=== PATIENT | female | born 1970 | race Caucasian/White ===

== ENCOUNTER 2021-01-14 08:24 | Emergency (ER) | payer OTHER, SELFPAY ==
[2021-01-14 08:48] VITALS: BP 155/95; PULSE 86; RESP 16; TEMP 36.5; O2SAT 99
--- NOTE | 2021-01-14 08:49 | ED.SKABFB ---
HPI - Skin/Abscess/Foreign Bdy General Chief complaint: Upper Respiratory Infection Stated complaint: thrush/sore throat Time Seen by Provider: 01/14/21 08:49 Source: patient Mode of arrival: ambulatory Limitations: no limitations History of Present Illness HPI narrative: Sabrina Tripathi is a 50 yo female with PMH of HTN who comes to [facility] with large splotchy hives on arms and back and complaints of mouth pain and throat pain. Her tongue has a light coating on it but her throat appears to be really red she said it hurts to swallow. Hives have been present for a month; but with is been sore for 3 days. No fever no nausea no vomiting Related Data Allergies Allergy/AdvReac Type Severity Reaction Status Date / Time tetracycline Allergy Mild SWELLING Verified 01/14/21 09:17 NAUSEA AND VOMITING Review of Systems Review of Systems: CONSTITUTIONAL: Denies fever, chills, sweats. EYES: Denies visual changes, redness, discharge. ENT: Denies rhinorrhea, congestion, has sore throat, and tongue, otalgia. CARDIOVASCULAR: Denies chest pain, palpitations, edema. RESPIRATORY: Denies dyspnea, wheezing, cough GASTROINTESTINAL: Denies abdominal pain, nausea, vomiting, diarrhea. GENITOURINARY: Denies dysuria, hematuria, abnormal discharge SKIN: Denies rash or itching. Has hives on her arms back and back of the neck NEUROLOGIC: Denies numbness, or focal weakness. PSYCHIATRIC: Denies anxiety or depression. [facility] Past Medical History Medical History Hypertension Family History Family History Other Diabetes mellitus Heart disease High cholesterol Hypertension Social History Social History (Updated 01/14/21 @ 08:57 by Dory Conteh CNP) Smoking status: Never smoker Alcohol intake: never Comments At time of signature, I agree with nursing past medical, surgical, social and family history. There is no relevant family history pertinent to the presenting complaint. Exam Narrative: GENERAL: This is a well-nourished, well-developed patient, in mild distress. HEAD: normocephalic, atraumatic. EYES: Sclera clear/white. Vision is grossly intact. EARS: External ears normal, . Hearing grossly intact. NOSE: External nose normal without nasal discharge, nares without redness, no rhinorrhea. THROAT: Mucous membranes moist, posterior pharynx erythema NECK: Neck supple, non-tender CARDIOVASCULAR: Regular rate and rhythm without murmurs, gallops, or rubs. RESPIRATORY: Clear to auscultation. Breath sounds equal bilaterally. No wheezes, rales, or rhonchi. GASTROINTESTINAL: Abdomen soft, SKIN: warm, intact with no suspicious lesions or rash, good texture and turgor. Large erythematous hives on arms back and back of neck NEURO: awake, alert, and oriented to person, place and time. There were no obvious focal neurologic abnormalities. Steady gait EXTREMITIES: Normal range of motion. BACK: Nontender without deformity Course Course Emergency Course: Patient has hives all over arms back for unknown reason x1 month and has coated tongue with sore throat Strep test done- negative We will start on prednisone and Atarax for the hives; nystatin swish and swallow 400,000 units 4 times daily Vital Signs Vital signs: Vital Signs Temperature 97.7 F 01/14/21 08:48 Pulse Rate 86 01/14/21 08:48 Respiratory Rate 16 01/14/21 08:48 Blood Pressure 155/95 H 01/14/21 08:48 Pulse Oximetry 99 01/14/21 08:48 Temperature 97.7 F 01/14/21 08:48 Pulse Rate 86 01/14/21 08:48 Respiratory Rate 16 01/14/21 08:48 Blood Pressure 155/95 H 01/14/21 08:48 Pulse Oximetry 99 01/14/21 08:48 MDM - Skin/Abscess/Foreign Bdy Lab Data Labs: Lab Results 01/14/21 Range/Units 09:08 POC Capillary Glucose 119 H (65-105) mg/dl Strep Screen Presumptive Negative
[2021-01-14 09:13] LABS: Glucose Point of Care 119 mg/dl (65-105)
[2021-01-14] MEDS: predniSONE 20 MG TABLET 60 MG PO (09:20)
== END 2021-01-14 09:34 | disposition home or self-care (01) ==
PROVIDERS: Emergency Provider Nurse Practitioner
DX: J02.9 Acute pharyngitis, unspecified (principal); I10 Essential (primary) hypertension
CPT/HCPCS: 82948; 87081; 87880; 99213; G0463; J7512

== ENCOUNTER 2021-02-12 14:53 | Emergency (ER) | payer OTHER, SELFPAY ==
[2021-02-12 15:10] VITALS: BP 157/84; PULSE 99; RESP 14; TEMP 36.3; O2SAT 97
[2021-02-12 15:17] VITALS: O2SAT 97
--- NOTE | 2021-02-12 16:27 | ED.GENADULT ---
HPI - General Adult General Chief complaint: Upper Respiratory Infection Stated complaint: I think I have COVID-19 Time Seen by Provider: 02/12/21 15:15 Source: patient Mode of arrival: ambulatory Limitations: no limitations History of Present Illness HPI narrative: Patient reports cough, congestion, nausea, diarrhea and fevers that began Tuesday. Patient reports she was exposed to covid and is unvaccinated. She denies hypoxia, sob, or chest pain. Patient reports she has been taking tylenol for her symptoms. Related Data Allergies Allergy/AdvReac Type Severity Reaction Status Date / Time tetracycline Allergy Mild SWELLING Verified 02/12/21 15:19 NAUSEA AND VOMITING Review of Systems Review of Systems: CONSTITUTIONAL: Denies fever, chills, or sweats. EYES: Denies visual changes, redness, or discharge. ENT: Reports rhinorrhea, congestion, Denies sore throat, or otalgia. CARDIOVASCULAR: Denies chest pain, palpitations, or edema. RESPIRATORY: Reports cough Denies dyspnea. GASTROINTESTINAL:Report nausea Denies abdominal pain or diarrhea. GENITOURINARY: Denies dysuria or hematuria. SKIN: Denies rash or itching. MUSCULOSKELETAL: Denies back pain, joint pain, or myalgia. NEUROLOGIC: Denies headache, numbness, dizziness, or weakness. PSYCHIATRIC: Denies anxiety or depression. [facility] Past Medical History Medical History Hypertension Family History Family History Other Diabetes mellitus Heart disease High cholesterol Hypertension Social History Social History (Updated 01/14/21 @ 08:57 by Dory Conteh CNP) Smoking status: Never smoker Alcohol intake: never Exam Narrative: GENERAL: Well-appearing, well-nourished, appears ill but not in acute distress. HEAD: Normocephalic, atraumatic. EYES: PERRLA and EOMI. ENT: Nares clear, no rhinorrhea or epistaxis. Bilateral TMs pearly cope nonbulging NECK: Supple. No adenopathy or masses. No carotid bruits or JVD CHEST: Clear to auscultation. No respiratory distress. No wheezes rales or rhonchi. Not tachypnic. HEART: Regular rate and rhythm. No murmur heard. Normal peripheral pulses. EXTREMITIES: Normal range of motion. No edema. SKIN: Warm, dry, no rash. NEURO: No focal deficits. Alert and oriented x3. PSYCH: Normal mood and affect. Course Vital Signs Vital signs: Vital Signs Temperature 97.3 F L 02/12/21 15:10 Pulse Rate 99 02/12/21 15:10 Respiratory Rate 14 02/12/21 15:10 Blood Pressure 157/84 H 02/12/21 15:10 Pulse Oximetry 97 02/12/21 15:10 Temperature 97.3 F L 02/12/21 15:10 Pulse Rate 99 02/12/21 15:10 Respiratory Rate 14 02/12/21 15:10 Blood Pressure 157/84 H 02/12/21 15:10 Pulse Oximetry 97 02/12/21 15:17 Medical Decision Making MDM Narrative Medical decision making narrative: Discussed with patient the need to quarantine and how to obtain her Covid results. Patient will be given a work note. Patient has been instructed to return to emergency department if develops any emergent symptoms including but not limited to shortness of breath, chest pain, persistent vomiting or diarrhea or any other emergent symptoms. Differential Diagnosis Differential Diagnosis: Pneumonia, Covid, viral syndrome Vital Signs Vital Signs: Vital Signs Temperature 97.3 F L 02/12/21 15:10 Pulse Rate 99 02/12/21 15:10 Respiratory Rate 14 02/12/21 15:10 Blood Pressure 157/84 H 02/12/21 15:10 Pulse Oximetry 97 02/12/21 15:10 Temperature 97.3 F L 02/12/21 15:10 Pulse Rate 99 02/12/21 15:10 Respiratory Rate 14 02/12/21 15:10 Blood Pressure 157/84 H 02/12/21 15:10 Pulse Oximetry 97 02/12/21 15:17 Lab Data Labs: Lab Results 02/12/21 Range/Units 15:24 SARS-CoV-2 RNA (RT-PCR) Pending Discharge Plan Discharge Clinical Impression: Suspected 2019-nCoV infection [place]
[2021-02-16 21:00] LABS: SARS-CoV-2 RNA PCR Positive
== END 2021-02-12 16:30 | disposition home or self-care (01) ==
PROVIDERS: Physician Assistant; Emergency Provider Emergency Medicine
DX: U07.1 COVID-19 (principal); I10 Essential (primary) hypertension
CPT/HCPCS: 99283; C9803; U0003; U0005